=== PATIENT | male | born 1965 | race Caucasian/White ===

== ENCOUNTER 2022-06-03 18:01 | Inpatient (IN) | payer MEDICAID, OTHER ==
[~2022-06-03] VITALS: Ht 167.6 cm; Wt 81.6 kg
[2022-06-03] MEDS ORDERED: NALOXONE HCL 0.4 MG/ML 1ML VIAL ONE (18:03)
[2022-06-03] MEDS ORDERED: NALOXONE HCL 1 MG/ML 2ML VIAL ONE (18:04)
[2022-06-03 18:29] LABS: BASOPHILS % 0.4 % (0.0-2.0); EOSINOPHILS % 1.9 % (0.0-5.0); HEMATOCRIT. 46.6 % (42.0-52.0); HEMOGLOBIN. 15.2 g/dL (14.0-18.0); LYMPHOCYTES % 41.5 % (20.0-50.0); MEAN CORPUSCULAR HEMOGLOBIN 29.7 pg (28.0-32.0); MEAN CORPUSCULAR VOLUME 90.9 fL (80.0-94.0); MEAN PLATELET VOLUME 9.7 fl (7.4-10.4); NEUTROPHILS % 50.2 % (40.0-76.0); PLATELET 256 x1000/uL (130-400); RED BLOOD CELL COUNT 5.13 mill/uL (4.7-6.1)
[2022-06-03 18:33] LABS: CLARITY URINE CLEAR (CLEAR); COLOR URINE DARK YELLOW (YELLOW); KETONES URINE TRACE (NEGATIVE); LEUKOCYTE ESTERASE URINE NEGATIVE (NEGATIVE); NITRITE URINE NEGATIVE (NEGATIVE); OCCULT BLOOD URINE NEGATIVE (NEGATIVE); PH URINE 5.5 (4.5-8.0); PROTEIN URINE 3+ (NEGATIVE); SPECIFIC GRAVITY URINE 1.031 (1.005-1.030)
[2022-06-03 18:36] LABS: CHLORIDE 106 mEq/L (98-107)
[2022-06-03 18:45] LABS: *AMPHETAMINES SCREEN URINE PRESUMTIVE POSITIVE (NEGATIVE); *BARBITURATES SCREEN URINE NEGATIVE (NEGATIVE); *BENZODIAZEPINES SCREEN URINE NEGATIVE (NEGATIVE); *COCAINE SCREEN URINE NEGATIVE (NEGATIVE); CANNABINOID URINE SCREEN NEGATIVE (NEGATIVE); METHADONE URINE SCREEN NEGATIVE (NEGATIVE); OPIATES URINE SCREEN NEGATIVE (NEGATIVE); PHENCYCLIDINE URINE SCREEN NEGATIVE (NEGATIVE)
[2022-06-03 18:51] LABS: ETHANOL BLOOD < 10 mg/dL
[2022-06-03] MEDS ORDERED: NALOXONE HCL 1 MG/ML 2ML VIAL IV ONE (20:30)
[2022-06-03] MEDS ORDERED: VANCOMYCIN 1G PREMIX 200 ML IV SCH (20:45)
[2022-06-03] MEDS ORDERED: CEFTRIAXONE 1 G PREMIX 50 ML IV ONE (20:45)
[2022-06-03] MEDS ORDERED: KETOROLAC 15MG/ML VIAL IV PRN (21:30)
[2022-06-03] MEDS ORDERED: ONDANSETRON HCL 4MG/2ML INJ IV PRN (21:30)
[2022-06-03] MEDS ORDERED: GUAIFENESIN 200MG/10ML SUGAR FREE UDC PO PRN (21:30)
[2022-06-03] MEDS ORDERED: CLONIDINE 0.1MG TABLET PO PRN (21:30)
[2022-06-03] MEDS ORDERED: DOCUSATE SODIUM 100MG CAPSULE PO PRN (21:30)
[2022-06-03] MEDS ORDERED: MAGNESIUM/ALUMINUM HYDROXIDE/SIMETHICONE 30ML UDC PO PRN (21:30)
[2022-06-03] MEDS ORDERED: NITROGLYCERIN 0.4MG TABLET SL SL PRN (21:30)
[2022-06-03] MEDS ORDERED: ENOXAPARIN 40MG/0.4ML SYR SUBCUT SCH (21:30)
[2022-06-03] MEDS ORDERED: ACETAMINOPHEN 325MG TABLET PO PRN ×2 (21:30)
[2022-06-03] MEDS ORDERED: IPRATROPIUM/ALBUTEROL 0.5-3(2.5)MG/3ML NEB NEB PRN (21:30)
[2022-06-03] MEDS ORDERED: PIPERACILLIN/TAZ 3.375G PREMIX 50 ML IV SCH (21:45)
[2022-06-03 21:55] LABS: T4 FREE 0.93 ng/dL (0.76-1.46)
[2022-06-03] MEDS ORDERED: KCL 20MEQ/100ML PREMIX 100 ML IV NR (22:00)
[2022-06-03 22:25] LABS: FOLIC ACID (FOLATE) SERUM 17.5 ng/mL (>5.38)
[2022-06-03] MEDS: SODIUM CHLORIDE 0.9% 1,000 ML IV SCH (22:33)
[2022-06-03] MEDS: ENOXAPARIN 30MG/0.3ML SYR SUBCUT SCH (22:34)
[2022-06-03 23:34] VITALS: BP 124/97
[2022-06-04 02:43] VITALS: BP 129/90
[2022-06-04 02:53] LABS: CREATINE KINASE MB FRACTION 2.6 ng/mL (0.5-3.6)
[2022-06-04 05:35] VITALS: BP 129/77
[2022-06-04] MEDS ORDERED: PIPERACILLIN/TAZ 3.375G PREMIX 50 ML IV SCH (06:00)
[2022-06-04 06:26] LABS: HEMATOCRIT. 42.8 % (42.0-52.0); HEMOGLOBIN. 14.3 g/dL (14.0-18.0); MEAN CORPUSCULAR HEMOGLOBIN 30.1 pg (28.0-32.0); MEAN PLATELET VOLUME 9.4 fl (7.4-10.4); PLATELET 201 x1000/uL (130-400); RED BLOOD CELL COUNT 4.76 mill/uL (4.7-6.1)
[2022-06-04 06:56] LABS: CHLORIDE 112 mEq/L (98-107)
[2022-06-04] MEDS: SODIUM CHLORIDE 0.9% 1,000 ML IV SCH (07:04)
[2022-06-04 07:05] LABS: PHOSPHORUS 4.1 mg/dL (2.5-4.9)
[2022-06-04 08:00] VITALS: BP 123/82
[2022-06-04] MEDS: ENOXAPARIN 30MG/0.3ML SYR SUBCUT SCH ×2 (08:03→21:37)
[2022-06-04] MEDS: PANTOPRAZOLE SODIUM 40 MG/VIAL IV SCH (08:04)
[2022-06-04] MEDS ORDERED: ACETAMINOPHEN 650MG SUPP PR PRN ×2 (09:45)
[2022-06-04] MEDS ORDERED: ACETAMINOPHEN 325MG TABLET PO PRN (09:45)
[2022-06-04 12:00] VITALS: BP 93/66
[2022-06-04 12:21] LABS: PLATELET ESTIMATE NORMAL
[2022-06-04] MEDS: PIPERACILLIN/TAZOBACTAM 3.375 G in DEXTROSE 5% WATER 50 ML IV SCH ×2 (15:58→21:37)
[2022-06-04 16:00] VITALS: BP 126/76
[2022-06-04 20:00] VITALS: BP 136/58
[2022-06-04] MEDS: IPRATROPIUM/ALBUTEROL 0.5-3(2.5)MG/3ML NEB HHN SCH (21:18)
[2022-06-05] VITALS: BP 109/77
[2022-06-05] MEDS: IPRATROPIUM/ALBUTEROL 0.5-3(2.5)MG/3ML NEB HHN SCH ×6 (01:32→21:48)
[2022-06-05] MEDS: LEVOTHYROXINE SODIUM 50MCG TABLET PO SCH (07:28)
[2022-06-05] MEDS: PIPERACILLIN/TAZOBACTAM 3.375 G in DEXTROSE 5% WATER 50 ML IV SCH ×3 (07:29→21:24)
[2022-06-05] MEDS: SODIUM CHLORIDE 0.9% 1,000 ML IV SCH ×2 (07:30→14:21)
[2022-06-05 08:00] VITALS: BP 102/59
[2022-06-05] MEDS: PANTOPRAZOLE SODIUM 40 MG/VIAL IV SCH (08:19)
[2022-06-05] MEDS: ENOXAPARIN 30MG/0.3ML SYR SUBCUT SCH ×2 (08:19→20:20)
[2022-06-05 12:00] VITALS: BP 129/79
[2022-06-05 16:00] VITALS: BP 128/76
[2022-06-05 20:00] VITALS: BP 124/73
[2022-06-06] VITALS: BP 128/77
[2022-06-06] MEDS: IPRATROPIUM/ALBUTEROL 0.5-3(2.5)MG/3ML NEB HHN SCH ×6 (02:01→22:07)
[2022-06-06] MEDS: SODIUM CHLORIDE 0.9% 1,000 ML IV SCH ×2 (03:21→16:22)
[2022-06-06 04:00] VITALS: BP 139/81
[2022-06-06] MEDS: PIPERACILLIN/TAZOBACTAM 3.375 G in DEXTROSE 5% WATER 50 ML IV SCH ×2 (05:25→13:56)
[2022-06-06] MEDS: LEVOTHYROXINE SODIUM 50MCG TABLET PO SCH (06:14)
[2022-06-06 08:00] VITALS: BP 130/80
[2022-06-06] MEDS: PANTOPRAZOLE SODIUM 40 MG/VIAL IV SCH (09:43)
[2022-06-06] MEDS: ENOXAPARIN 30MG/0.3ML SYR SUBCUT SCH (09:43)
[2022-06-06 12:00] VITALS: BP 109/79
[2022-06-06 20:00] VITALS: BP 118/62
[2022-06-07] VITALS: BP 122/75
[2022-06-07] MEDS: PIPERACILLIN/TAZOBACTAM 3.375 G in DEXTROSE 5% WATER 50 ML IV SCH ×2 (00:06→05:30)
[2022-06-07] MEDS: IPRATROPIUM/ALBUTEROL 0.5-3(2.5)MG/3ML NEB HHN SCH ×4 (01:08→12:37)
[2022-06-07 04:00] VITALS: BP 134/81
[2022-06-07] MEDS: SODIUM CHLORIDE 0.9% 1,000 ML IV SCH (05:30)
[2022-06-07] MEDS: LEVOTHYROXINE SODIUM 50MCG TABLET PO SCH (06:43)
[2022-06-07 08:00] VITALS: BP 126/78
[2022-06-07] MEDS: PANTOPRAZOLE SODIUM 40 MG/VIAL IV SCH (08:56)
[2022-06-07] MEDS ORDERED: ENOXAPARIN 40MG/0.4ML SYR SUBCUT SCH (09:00)
[2022-06-07] MEDS ORDERED: LEVO50TA8 PO (11:38)
[2022-06-07] MEDS ORDERED: CLIN-194 MT (11:38)
[2022-06-07 12:00] VITALS: BP 125/72
[2022-06-07 13:20] VITALS: BP 125/72
== END 2022-06-07 16:00 | disposition home health service (06) | DRG 720 ==
LOC: ER 18:01 → 8WST 20:35 → EDBEDREQ 20:40 → EDBEDREQTM 20:40 → EDBEDREQSVC 20:40 → ENRESERV 22:24
PROVIDERS: ADMIT Internal Medicine; ATTEND Internal Medicine
DX: A41.9 Sepsis, unspecified organism (principal); J96.01 Acute respiratory failure with hypoxia; G92.8 Other toxic encephalopathy; J18.9 Pneumonia, unspecified organism; E83.51 Hypocalcemia; R65.20 Severe sepsis without septic shock; E87.6 Hypokalemia; Z20.822 Contact with and (suspected) exposure to COVID-19; F15.129 Other stimulant abuse with intoxication, unspecified; E03.9 Hypothyroidism, unspecified; E11.9 Type 2 diabetes mellitus without complications
CPT/HCPCS: 36415; 71045; 80053; 80061; 80305; 80307; 80320; 80329; 81003; 82550; 82553; 82607; 82746; 82962; 83036; 83540; 83550; 83605; 83735; 83880; 84100; 84439; 84443; 84484; 85025; 87426; 93005; 93306; 93970; 94640; 97162; 97166; 97530; 99291; C9113; J0696; J1650; J2310; J2405; J2543; J3370; J3480; J7060; G0480